=== PATIENT | female | born 2000 ===

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

== ENCOUNTER 2023-05-01 16:00 | Emergency (ER) | payer OTHER, SELFPAY ==
[2023-05-01 16:10] VITALS: BP 114/68; PULSE 87; RESP 16; TEMP 36.4; O2SAT 98; BMI 18.9
--- NOTE | 2023-05-01 16:10 | ED.GENADULT ---
HPI - General Adult General Chief complaint: Upper Respiratory Symptoms Stated complaint: sore throat Source: patient Mode of arrival: ambulatory Limitations: no limitations History of Present Illness HPI narrative: 22 year old female no medical hx presents w/ sore throat, fatigue, malaise and myalgias X2 days. Noticed white dots in the back of her throat per patient. Pain is described as 8/10 worse w/ swallowing. No sick contacts. Denies fevers, chills, cp, shortness of breath, cough, nausea, vomiting, abd pain, ear pain, trismus. Related Data Previous Rx's Medication Instructions Recorded ibuprofen 600 mg tablet 600 mg PO Q8H PRN pain #15 tabs 05/16/21 Magic Mouthwash 5 ml PO TID #240 mL 05/01/23 Diphen/Lido/Antacid 1:1:1 240 mL suspension amoxicillin 875 mg-potassium 1 tab PO BID 10 days #20 tabs 05/01/23 clavulanate 125 mg tablet prednisone 20 mg tablet 40 mg PO DAILY 5 days #10 tabs 05/01/23 Allergies Allergy/AdvReac Type Severity Reaction Status Date / Time No Known Allergies Allergy Verified 05/01/23 16:13 Review of Systems Review of Systems: Constitutional : No Weight loss, No Fever, No Chills, + Fatigue, + Malaise ENT/Mouth : + sore throat, No Rhinorrhea Eyes: No Eye Pain, No Swelling, No Redness Cardiovascular : No Chest Pain, No SOB, No Dyspnea on Exertion, No Orthopnea, No Edema, No Palpitations Respiratory : No Cough, No Sputum, No Wheezing Gastrointestinal : No Nausea, No Vomiting, No Diarrhea, No Constipation, No abdominal Pain, No Hematochezia, No Melena Genitourinary : No Dysuria, No Urinary Frequency, No Hematuria, Musculoskeletal : No joint pain, No Myalgias, No Joint Swelling Skin : No Skin Lesions, No rash Neuro : No Weakness, No Numbness, No Dizziness, No Headache Psych : No Anxiety/Panic, No Depression All other systems reviewed and are negative Yes all other systems are reviewed and are negative [facility] Past Medical History Attestation statement: The following information was validated with the patient. Source: old records reviewed and nursing notes reviewed Medical History No known health problems Surgical History (Updated 05/16/21 @ 15:55 by Theron Solo) History of appendectomy Social History Social History Alcohol intake: current Alcohol intake frequency: a few times a week Alcohol type: beer and wine Patient Tobacco Use Status: Never used Tobacco Advance Directives: No Advance Directives Information Provided: Yes Physical Exam ED Vital Signs: Vital Signs - 24 hr 05/01/23 16:10 Temperature 97.5 F Pulse Rate 87 Respiratory Rate 16 Blood Pressure 114/68 Pulse Oximetry 98 Oxygen Delivery Method Room Air BMI result Body Mass Index 18.9 vss Appearance: Alert.? Oriented X3.? No acute distress.? Head: Normocephalic, atraumatic, no step-offs or deformities Eyes: Pupils equal, round and reactive to light.? ENT: Pharynx w/ errythema and b/l tonsils mild edema w/ b/l white exudate. Uvula midline. No trismus. Speaking in full sentences controlling secretions well. No mastoid tenderness. Neck: Normal inspection.? Neck supple.? CVS: Normal heart rate and rhythm.? Pulses normal.? Respiratory: No respiratory distress.? Breath sounds normal.? Abdomen: Soft and nontender.? Skin: Skin warm and dry.? Normal skin color.? Normal skin turgor.? Extremities: No lower extremity edema.? No calf ttp. 5/5 strength to bilateral upper and lower extremities Back: No midline tenderness, no C-spine tenderness, full range of motion, no CVA tenderness bilaterally Neuro: Oriented X 3.? No motor deficit.? No sensory deficit. CN 2-12 intact Course Course Course Narrative: This is an RME: Additional HPI, ROS, PE not included below will be deferred to primary provider. 22 year old female no medical hx presents w/ sore throat, fatigue, malaise and myalgias X2 days. Noticed white dots in the back of her throat per patient. Pain is described as 8/10 worse w/ swallowing. No sick contacts. Denies fevers, chills, cp, shortness of breath, cough, nausea, vomiting, abd pain, ear pain, trismus. PE- Plan- Strep swab. Reevaluation(s) Reevaluation #1: Strep +. Augmentin prednisone and magic mouthwash sent to pharmacy. Educated patient on worrisome signs and sx. Will follow up with PCP Time: 16:39 Medical Decision Making Medical Decision Making [facility] Narrative: 1614 22 yo F presents w/ sore thorat X2 days PE w/ Pharynx w/ errythema and b/l tonsils mild edema w/ b/l white exudate. Uvula midline. No trismus. Speaking in full sentences controlling secretions well. No mastoid tenderness. Likley strep vs viral ilness. No signs of abscess, epiglotitis, RPA or peritonsillar abscess. No signs of airway compromise Plan strep Differential Diagnosis Differential Diagnoses: The differential diagnosis associated with the presentation includes Likley strep vs viral ilness. No signs of abscess, epiglotitis, RPA or peritonsillar abscess. No signs of airway compromise Admission/Observation Consideration of admission/observation: Escalation of care including admission/observation considered unlikely Lab Data [facility] Lab Attestation statement: I reviewed the patient's lab results. Labs: Lab Results 05/01/23 Range/Units 16:15 S. pyogenes GrpA FELIX Positive A (Negative) Prescription Management I considered prescription management with: Antibiotic Core Measures AMI core measures followed: Yes Measure exclusions: not indicated Critical Care Time Critical Care Time Critical Care Time: No Discharge Plan Discharge Clinical Impression: Pharyngitis, Strep throat Patient Disposition: Home, Self-Care Instructions: Pharyngitis (ED) Additional Instructions: Take your medications as prescribed. If you were prescribed antibiotics today, it is important that you take your medication to their entirety, do not skip any doses, do not finish them early. Follow-up with your primary care provider this week. Return to the emergency department with new or worsening symptoms. In case of emergency call 911 Prescriptions: New prednisone 20 mg tablet 40 mg PO DAILY 5 Days Qty: 10 0RF amoxicillin-pot clavulanate 875-125 mg tablet 1 tab PO BID 10 Days Qty: 20 0RF Magic Mouthwash Diphen/Lido/Antacid 1:1:1 240 mL suspension 5 ml PO TID Qty: 240 0RF Rx Instructions: Lidocaine Viscous 2 % 80mL; diphenhydramine 12.5 mg/5 mL 80mL; aluminum-mag hydrox-simeth [id number]/5mL 80mL Swish and spit, do not swallow No Action ibuprofen 600 mg tablet 600 mg PO Q8H PRN (Reason: pain) Qty: 15 0RF Referrals: Physician,None [Primary Care Provider] - 2 days Stand Alone Forms: Work/School Release
[2023-05-01 16:27] LABS: IDNOW Serial# 08D9AD1C; Strep A Nucleic Acid Positive (Negative)
== END 2023-05-01 16:42 | disposition home or self-care (01) ==
PROVIDERS: Physician Assistant; Emergency Provider Internal Medicine
DX: J02.9 Acute pharyngitis, unspecified (principal); J02.0 Streptococcal pharyngitis
CPT/HCPCS: 87651; 99282; 99283

== ENCOUNTER 2023-07-01 10:51 | Emergency (ER) | payer OTHER, SELFPAY ==
--- NOTE | 2023-07-01 11:01 | ED_ITS ---
HPI - General Adult General Chief complaint: Urogenital-Female Stated complaint: Pain when urinating Time Seen by Provider: 07/01/23 11:46 Source: patient Mode of arrival: ambulatory Limitations: no limitations History of Present Illness HPI narrative: Patient is a 23-year-old female presenting to the emergency department with complaint of 4-5 days of dysuria, has noted some pink discoloration with wiping. Reports chronic back pain r/t her job, denies recent worsening. Denies fevers. Denies any concern for STIs. Denies any abdominal, back, or flank pain. MD complaint: dysuria Onset (ago): day(s) Severity: moderate Quality: burning Pain Consistency: intermittent Exacerbating factors: other (urination) Associated symptoms: denies other symptoms Treatments prior to arrival: none Related Data Previous Rx's Medication Instructions Recorded ibuprofen 600 mg tablet 600 mg PO Q8H PRN pain #15 tabs 05/16/21 Magic Mouthwash 5 ml PO TID #240 mL 05/01/23 Diphen/Lido/Antacid 1:1:1 240 mL suspension amoxicillin 875 mg-potassium 1 tab PO BID 10 days #20 tabs 05/01/23 clavulanate 125 mg tablet prednisone 20 mg tablet 40 mg PO DAILY 5 days #10 tabs 05/01/23 nitrofurantoin 100 mg PO Q12H 5 days #10 caps 07/01/23 monohydrate/macrocrystals 100 mg capsule (Macrobid) phenazopyridine 200 mg tablet 200 mg PO TID PRN pain #6 tabs 07/01/23 Allergies Allergy/AdvReac Type Severity Reaction Status Date / Time No Known Allergies Allergy Verified 05/01/23 16:13 Review of Systems Review of Systems: As per HPI. Yes all other systems are reviewed and are negative Constitutional: Constitutional: Reports as per HPI [facility] Past Medical History Medical History No known health problems Surgical History (Updated 05/16/21 @ 15:55 by Theron Solo) History of appendectomy Social History Social History Alcohol intake: current Alcohol intake frequency: a few times a week Alcohol type: beer and wine Patient Tobacco Use Status: Never used Tobacco Physical Exam ED Vital Signs: Vital Signs - 24 hr 08/29/23 11:02 Temperature 98.0 F Pulse Rate 53 Respiratory Rate 16 Blood Pressure 113/75 Pulse Oximetry 99 Oxygen Delivery Method Room Air BMI result Body Mass Index 19.5 Vital signs have been reviewed and appear to be correct. Blood pressure normal. Heart rate normal. Respiratory rate normal. Temperature normal. Oxygen saturation normal. Const General: cooperative, healthy appearing and no acute distress Orientation/consciousness: oriented to person, oriented to place, oriented to time and patient oriented x3 Limitations: no limitations HENMT Head: Yes normocephalic and Yes atraumatic Ears: external ears normal General nose exam: Normal external nose present Face and sinus: Yes face symmetric Mouth: oropharynx normal and moist mucous membranes Throat: Yes uvula midline Eyes Pupils: Equal, round and reactive pupils present Neck Neck: Yes normal visual inspection and Yes supple Resp Effort & Inspection: normal respiratory effort and able to speak in complete sentences Auscultation: clear to auscultation bilaterally Cardio Rate: regular rate Rhythm: regular rhythm Heart sounds: S1 normal heart sound present and S2 normal heart sound present GI Palpation (GI): Soft to palpation and nontender Auscultation: normoactive bowel sounds General: Yes no CVA tenderness Back/Spine/Pelvis Back: no CVA tenderness Skin General skin exam: elasticity normal and turgor normal Neuro General: oriented to person, oriented to place, oriented to time, patient oriented x3, moves all extremities, no focal motor deficits and CN's II-XI intact bilaterally Cranial nerves: Yes Equal, round and reactive pupils present Cognition (Neuro): normal cognition Extrem General: Yes full ROM, Yes no pedal edema and Yes no calf tenderness Psych Mental Status: mental status grossly normal Affect: normal affect Thought process: Normal thought process present Medical Decision Making Medical Decision Making MDM Narrative: Patient is a 23-year-old female presenting to the emergency department with complaint of 4-5 days of dysuria, has noted some pink discoloration with wiping. On exam patient is awake, A+Ox3, VS WNL, afebrile, nontoxic appearing, normal neurological exam without focal deficits, abdomen soft and nontender, no CVA tenderness. Given reported symptoms and physical exam findings, initial differential includes UTI, pyelonephritis, renal calculi, STI. UA notable for 1+ leukocytes, 2+ blood, positive nitrites, 4+ bacteria. Upreg negative. Feel patient is stable for discharge home on PO antibiotics. All results discussed and all questions answered. Instructed patient to follow up with PCP. Return precautions discussed. Patient verbalized understanding of and agreement with plan. Differential Diagnosis Differential Diagnoses: The differential diagnosis associated with the presentation includes As per [facility]. Lab Data [facility] Lab Attestation statement: I reviewed the patient's lab results. As per [facility]. Labs: Lab Results 07/01/23 07/01/23 Range/Units 11:14 11:14 Urine Color Yellow Urine Appearance Cloudy Urine pH 5.5 (5.0-9.0) Ur Specific [place] 1.025 (1.005-1.025) Urine Protein Trace (Neg-Trace) mg/dL Urine Glucose (UA) Negative (Negative) mg/dL Urine Ketones Trace (Negative) mg/dL Urine Blood Moderate (2+) H (Negative) Urine Nitrite Positive H (Negative) Ur Leukocyte Esterase Small (1+) H (Negative) Urine RBC 11-20 H (0-2) /HPF Urine WBC 21-50 H (0-5) /HPF Ur Squamous Epith Cells 6-10 (0-2) /HPF Urine Bacteria 4+ (None Seen) Hyaline Casts 0-2 (0-2) /LPF Urine Test NEGATIVE (NEGATIVE) External Record Review External record reviewed: Inpatient record, Office record and Outpatient record Prescription Management I considered prescription management with: Antibiotic Discharge Plan Discharge Clinical Impression: Urinary tract infection Patient Disposition: Home, Self-Care Instructions: Urinary Tract Infection in Women (DC) Additional Instructions: You have been evaluated in the emergency department today for your urinary symptoms. Your evaluation, including urinalysis, suggests that your symptoms are due to urinary tract infection. Please take your prescribed antibiotics for the full course of medication as directed. You are also being prescribed phenazopyridine which you can use every 8 hours as needed for discomfort. Please follow-up with your primary care provider within 2 days. Return to the emergency department if you experience fevers 100.4? F or greater, worsening or uncontrolled pain, vomiting, flank pain, or for any other concerning symptoms. Prescriptions: New nitrofurantoin monohyd/m-cryst [Macrobid] 100 mg capsule 100 mg PO Q12H 5 Days Qty: 10 0RF Rx Instructions: must administer with a meal/food phenazopyridine 200 mg tablet 200 mg PO TID PRN (Reason: pain) Qty: 6 0RF No Action ibuprofen 600 mg tablet 600 mg PO Q8H PRN (Reason: pain) Qty: 15 0RF prednisone 20 mg tablet 40 mg PO DAILY 5 Days Qty: 10 0RF amoxicillin-pot clavulanate 875-125 mg tablet 1 tab PO BID 10 Days Qty: 20 0RF Magic Mouthwash Diphen/Lido/Antacid 1:1:1 240 mL suspension 5 ml PO TID Qty: 240 0RF Rx Instructions: Lidocaine Viscous 2 % 80mL; diphenhydramine 12.5 mg/5 mL 80mL; aluminum-mag hydrox-simeth [id number]/5mL 80mL Swish and spit, do not swallow Stand Alone Forms: Work/School Release
[2023-07-01 11:02] VITALS: BP 113/75; PULSE 53; RESP 16; TEMP 36.7; O2SAT 99; BMI 19.5
[2023-07-01 11:24] LABS: Appearance Urine Cloudy; Color Urine Yellow; Glucose Urine UA Negative (Negative); Leukocyte Esterase Urine Small (1+) (Negative); Nitrite Urine Positive (Negative); PH 5.5 (5.0-9.0); Specific Gravity - Urine 1.025 (1.005-1.025); UMIC TRIGGER UACC YES; Urine Blood Moderate (2+) (Negative); Urine Ketones Trace mg/dL (Negative); Urine Protein Trace mg/dL (Neg-Trace)
[2023-07-01 11:26] LABS: UPreg QC Valid YES; Urine Pregnancy NEGATIVE (NEGATIVE)
[2023-07-01 11:29] LABS: Bacteria Urine 4+ (None Seen); Hyaline Casts Urine 0-2 /LPF (0-2); UACC Culture Trigger YES; WBC Urine 21-50 /HPF (0-5)
== END 2023-07-01 11:55 | disposition home or self-care (01) ==
PROVIDERS: Registered Nurse Emergency; Emergency Provider Student in an Organized Health Care Education/Training Program
DX: N39.0 Urinary tract infection, site not specified (principal); R30.0 Dysuria; Z79.899 Other long term (current) drug therapy
CPT/HCPCS: 81001; 81025; 87086; 87088; 87186; 99282; 99283

== ENCOUNTER 2023-12-24 20:44 | Emergency (ER) | payer OTHER, SELFPAY ==
[2023-12-24 20:48] VITALS: BP 106/58; PULSE 63; RESP 18; TEMP 36.2; O2SAT 99; BMI 18.9
[2023-12-24 21:56] LABS: Influenza A PCR NEGATIVE (Negative); Influenza B PCR NEGATIVE (Negative); Resp Syncy Virus RNA Qual PCR NEGATIVE (Negative); SARS COV2 PCR INHOUSE NEGATIVE (Negative)
--- NOTE | 2023-12-24 23:13 | PC.NURSE ---
pt reporting gradual onset of a headache that has not subsided, pt reports she has tried motrin with no relief. pt reports having symptoms of stomach flu one day ago with diarrhea and nausea. pt able to speak in full sentences, neuro assessment in tact. pt denies n/v/d at this time.
--- NOTE | 2023-12-25 00:03 | ED.HA ---
HPI - Headache General Chief Complaint: Headache Stated Complaint: migraine, nausea, dizziness Time Seen by Provider: 12/24/23 23:55 Source: patient Mode of arrival: ambulatory Limitations: no limitations History of Present Illness HPI Narrative: Patient comes to the emergency room complaining of a headache for 3 days. Patient states that she has taken 1 tablet of Tylenol every 24 hours without any relief. Patient complaining of photophobia. Patient states that she has never been diagnosed with migraines. Patient states that 5 days ago, she had ?a stomach flu? with nausea vomiting and diarrhea. Related Data Previous Rx's Medication Instructions Recorded ibuprofen 600 mg tablet 600 mg PO Q8H PRN pain #15 tabs 05/16/21 Magic Mouthwash 5 ml PO TID #240 mL 05/01/23 Diphen/Lido/Antacid 1:1:1 240 mL suspension amoxicillin 875 mg-potassium 1 tab PO BID 10 days #20 tabs 05/01/23 clavulanate 125 mg tablet prednisone 20 mg tablet 40 mg (2 x 20 mg) PO DAILY 5 days 05/01/23 #10 tabs nitrofurantoin 100 mg PO Q12H 5 days #10 caps 07/01/23 monohydrate/macrocrystals 100 mg capsule (Macrobid) phenazopyridine 200 mg tablet 200 mg PO TID PRN pain #6 tabs 07/01/23 sulfamethoxazole 800 1 tab PO BID #14 tabs 07/12/23 mg-trimethoprim 160 mg tablet (Bactrim DS) ketorolac 10 mg tablet 10 mg PO TID PRN pain 5 days #9 12/25/23 tabs Allergies Allergy/AdvReac Type Severity Reaction Status Date / Time No Known Allergies Allergy Verified 05/01/23 16:13 Review of Systems Review of Systems: Constitutional : No Weight loss, No Fever, No Chills, No Night Sweats, No Fatigue, No Malaise ENT/Mouth : No Hearing loss, No Ear Pain, No Nasal Congestion, No Sinus Pain, No Hoarseness, No sore throat, No Rhinorrhea, No Swallowing Difficulty Eyes: No Eye Pain, No Swelling, No Redness, No Foreign Body, No Discharge, No Vision Changes Cardiovascular : No Chest Pain, No SOB, No Dyspnea on Exertion, No Orthopnea, No Edema, No Palpitations Respiratory : No Cough, No Sputum, No Wheezing, No Smoke Exposure, No Dyspnea Gastrointestinal : No Nausea, No Vomiting, No Diarrhea, No Constipation, No abdominal Pain, No Hematochezia, No Melena Genitourinary : no irregular bleeding, No Dysuria, No Urinary Frequency, No Hematuria, No Urinary Incontinence, No Urgency, No Flank Pain, No Urinary Flow Changes, No Hesitancy Musculoskeletal : No joint pain, No Myalgias, No Joint Swelling Skin : No Skin Lesions, No rash Neuro : No Weakness, No Numbness, No Paresthesias, No Loss of Consciousness, No Dizziness, complaining of Headache Psych : No Anxiety/Panic, No Depression, No SI/HI/AH/VH, No Social Issues, Heme/Lymph: No Bruising, No Bleeding,No Lymphadenopathy Endocrine : No Polyuria, No Polydipsia, No Temperature Intolerance PMF Past Medical History Medical History No known health problems Surgical History History of appendectomy Social History Social History Alcohol intake: current Alcohol intake frequency: a few times a week Alcohol type: beer and wine Patient Tobacco Use Status: Never used Tobacco Smoked in Last 30 Days: No Use of substances other than those prescribed or required for medical reasons: No Advance Directives: No Advance Directives Information Provided: Yes Patient : No Physical Exam Vital Signs: Vital Signs: Last Vital Signs Temp 97.2 F 12/24/23 20:48 Pulse 63 12/24/23 20:48 Resp 18 12/24/23 20:48 BP 106/58 L 12/24/23 20:48 Pulse Ox 99 12/24/23 20:48 O2 Del Method Room Air 12/24/23 20:48 BMI result Body Mass Index 18.9 Const: Other: Appearance: Alert. Oriented X3. No acute distress. Well-appearing Eyes: Pupils equal, round and reactive to light. ENT: Pharynx normal. Neck: Normal inspection. Neck supple. No lymph nodes noted. No crepitus CVS: Normal heart rate and rhythm. Pulses normal. Normal S1 and S2 Respiratory: No respiratory distress. Breath sounds normal. No Wheezing. No rales Abdomen: Soft and nontender. No rigidity. No distention. Skin: Skin warm and dry. Normal skin color. Normal skin turgor. Extremities: No lower extremity edema. No Lacerations. No Rash Neuro: Oriented X 3. No motor deficit. No sensory deficit. Moving all extremities. No slurred speech. CN 2 through 12 grossly intact Psych: calm, cooperative, normal affect Medical Decision Making Medical Decision Making MDM Narrative: -patient complaining of headache, no neurological deficits -patient has been taking insufficient amount of medication for the pain. -in the ED, patient given IM ketorolac and p.o. Reglan -patient ready for discharge Differential Diagnosis Differential Diagnoses: The differential diagnosis associated with the presentation includes (Migraine headache, tension headache, cluster headache) Lab Data Labs: Lab Results 12/24/23 Range/Units 21:09 Influenza Type A (PCR) NEGATIVE (Negative) Influenza Type B (PCR) NEGATIVE (Negative) RSV RNA Qual (PCR) NEGATIVE (Negative) SARS-CoV-2 RNA (RT-PCR) NEGATIVE (Negative) Discharge Plan Discharge Clinical Impression: Headache Patient Disposition: Home, Self-Care Instructions: Acute Headache (ED) Additional Instructions: Please follow-up with your primary care physician tomorrow. If you have any worsening or new symptoms, please return to the emergency room or call 911 Prescriptions: New ketorolac 10 mg tablet 10 mg PO TID PRN (Reason: pain) 5 Days Qty: 9 0RF No Action ibuprofen 600 mg tablet 600 mg PO Q8H PRN (Reason: pain) Qty: 15 0RF prednisone 20 mg tablet 40 mg PO DAILY 5 Days Qty: 10 0RF amoxicillin-pot clavulanate 875-125 mg tablet 1 tab PO BID 10 Days Qty: 20 0RF Magic Mouthwash Diphen/Lido/Antacid 1:1:1 240 mL suspension 5 ml PO TID Qty: 240 0RF Rx Instructions: Lidocaine Viscous 2 % 80mL; diphenhydramine 12.5 mg/5 mL 80mL; aluminum-mag hydrox-simeth [id number]/5mL 80mL Swish and spit, do not swallow nitrofurantoin monohyd/m-cryst [Macrobid] 100 mg capsule 100 mg PO Q12H 5 Days Qty: 10 0RF Rx Instructions: must administer with a meal/food phenazopyridine 200 mg tablet 200 mg PO TID PRN (Reason: pain) Qty: 6 0RF sulfamethoxazole-trimethoprim [Bactrim DS] 800-160 mg tablet 1 tab PO BID Qty: 14 0RF
[2023-12-25] MEDS: Ketorolac Tromethamine 60 MG/2 ML VIAL IM (00:22)
[2023-12-25] MEDS: Metoclopramide HCl 10 MG TABLET PO (00:22)
== END 2023-12-25 00:25 | disposition home or self-care (01) ==
PROVIDERS: Emergency Provider Emergency Medicine
DX: R51.9 Headache, unspecified (principal); Z11.52 Encounter for screening for COVID-19; Z20.828 Contact with and (suspected) exposure to other viral communicable diseases
CPT/HCPCS: 0241U; 96372; 99284; J1885